=== PATIENT | male | born 1990 | race Caucasian/White ===

== ENCOUNTER 2017-03-20 04:23 | Emergency (ER) | payer OTHER ==
[2017-03-20 04:29] VITALS: BP 149/88; PULSE 113; RESP 16; O2SAT 94
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
== END 2017-03-20 05:21 ==
DX: S51.011A Laceration without foreign body of right elbow, initial encounter (principal); S00.12XA Contusion of left eyelid and periocular area, initial encounter; F17.200 Nicotine dependence, unspecified, uncomplicated; V47.5XXA Car driver injured in collision with fixed or stationary object in traffic accident, initial encounter; Y92.410 Unspecified street and highway as the place of occurrence of the external cause; Y99.8 Other external cause status